=== PATIENT | male | born 1975 | race Hispanic/Latino ===

== ENCOUNTER 2025-01-09 09:10 | Emergency (ER) | payer OTHER ==
[~2025-01-09] VITALS: Ht 172.7 cm; Wt 113.4 kg
[2025-01-09 09:30] VITALS: TEMP 97.8
[2025-01-09] MEDS: ONDANSETRON HCL INJ 2MG/ML 2ML 2 MG/ML VIAL IV STA (10:03)
[2025-01-09] MEDS: SODIUM CHLORIDE 0.9% 1000ML 1,000 ML IV STA (10:04)
[2025-01-09 10:08] LABS: INR 1.37; PROTHROMBIN TIME 17.6 seconds (11.9-14.5)
[2025-01-09 10:09] LABS: PARTIAL THROMBOPLASTIN TIME 32.8 seconds (23.8-35.5)
[2025-01-09 10:12] LABS: BASOPHILS # (AUTO) 0.1 (0.0-0.1); BASOPHILS % 1.2 % (0.0-1.0); EOSINOPHILS # (AUTO) 0.1 (0.0-0.4); EOSINOPHILS % 2.9 % (0.0-6.0); HEMATOCRIT 42.8 % (38.2-49.6); HEMOGLOBIN 15.3 g/dL (14.0-18.0); LYMPHOCYTES # (AUTO) 0.7 (1.0-3.2); LYMPHOCYTES % 16.2 % (18.0-39.1); MEAN CORPUSCULAR HEMOGLOBIN 33.3 pg (28-32); MEAN CORPUSCULAR HGB CONC 35.7 g/dL (31-35); MEAN CORPUSCULAR VOLUME 93.2 fL (81-99); MONOCYTES # (AUTO) 0.5 (0.2-0.8); MONOCYTES % 10.7 % (4.4-11.3); NEUTROPHILS # (AUTO) 2.9 (2.1-6.9); PLATELET COUNT 67 x10e3/uL (140-360); RED BLOOD COUNT 4.59 x10e6/uL (4.3-5.7); RED CELL DISTRIBUTION WIDTH 14.5 % (11.7-14.4); WHITE BLOOD COUNT 4.19 x10e3/uL (4.8-10.8)
[2025-01-09 10:17] LABS: ALBUMIN 3.2 g/dL (3.5-5.0); ALBUMIN/GLOBULIN RATIO 0.5 (0.8-2.0); ANION GAP 14.5 mmol/L (8-16); BILIRUBIN,TOTAL 1.7 mg/dL (0.2-1.2); CALCIUM 8.7 mg/dL (8.4-10.2); CREATININE, SERUM 0.77 mg/dL (0.72-1.25); MAGNESIUM 1.9 MG/DL (1.3-2.1); POTASSIUM 3.5 mmol/L (3.5-5.1); TOTAL PROTEIN 9.2 g/dL (6.5-8.1)
[2025-01-09 10:26] LABS: TROPONIN I 0.115 ng/mL (0-0.300)
[2025-01-09] MEDS ORDERED: IOPAMIDOL 370 MG/ML 100 ML INFUS..BTL INJ ONE (10:28)
[2025-01-09] MEDS ORDERED: ATENOLOL50 MG PO (12:07)
[2025-01-09] MEDS ORDERED: PANTOPRAZOLE SO40 MG PO (12:07)
[2025-01-09] MEDS ORDERED: HYDROXYZINE HCL25 MG PO (12:19)
[2025-01-09 12:33] VITALS: PULSE 82; RESP 18; O2SAT 96
== END 2025-01-09 12:30 | disposition home or self-care (01) ==
LOC: EDSEX 09:28 → ER 09:28
DX: R11.2 Nausea with vomiting, unspecified (principal); K70.30 Alcoholic cirrhosis of liver without ascites; R07.89 Other chest pain; I10 Essential (primary) hypertension; K21.9 Gastro-esophageal reflux disease without esophagitis; F41.9 Anxiety disorder, unspecified; F17.210 Nicotine dependence, cigarettes, uncomplicated
CPT/HCPCS: 36415; 71045; 74177; 80053; 80320; 83735; 84484; 85025; 85610; 85730; 93005; 99284; J2405; J2470; J7030; Q9967